=== PATIENT | male | born 1945 | race Caucasian/White ===

== ENCOUNTER → 2020-09-15 | Outpatient (CLI) | payer MEDICARE, BC ==
[~2020-09-15] VITALS: Ht 190.5 cm; Wt 134.3 kg
[~2020-09-15] MED LIST: ADDERALL10 MG PO; AGGRENOX 25 MG-1 CER PO; COUMADIN PO; DIOVAN 12.5 MG-1 TAB PO; DIOVAN320 MG PO; OXYCONTIN10 MG PO; SIMVASTATIN40 MG PO; TENEX1 MG PO; THERAGRAN1 TA1 PO; VITAMIN D31000 IU PO
[2020-09-15 08:30] VITALS: BP 137/82; PULSE 70
--- NOTE | 2020-09-15 08:47 | NUR ---
taken back to [facility].
[2020-09-15 09:45] VITALS: BP 140/84; PULSE 69
[2020-09-15 11:00] LABS: TOTAL PROTEIN 4.6 gm/dL (6.4-8.2)
[2020-09-15 12:44] LABS: PLEURAL FLUID APPEARANCE CLOUDY; PLEURAL FLUID COLOR RED
[2020-09-15 12:45] LABS: PLEURAL FLUID RBC 21000 /mm3 (0-0); PLEURAL FLUID WBC 1715 /mm3
== END ==
LOC: COL.RAD 08:15
PROVIDERS: Family Medicine
DX: J90 Pleural effusion, not elsewhere classified (principal)

== ENCOUNTER → 2020-09-21 | Outpatient (CLI) | payer MEDICARE, BC | LOC: COL.RAD 07:08 | DX: C34.91 Malignant neoplasm of unspecified part of right bronchus or lung (principal); C77.9 Secondary and unspecified malignant neoplasm of lymph node, unspecified | CPT/HCPCS: Q9967 ==

== ENCOUNTER → 2020-09-30 | Outpatient (CLI) | payer MEDICARE, BC ==
[2020-09-30 15:47] VITALS: BP 146/78; PULSE 78
== END ==
LOC: COL.RAD 14:08
DX: C34.91 Malignant neoplasm of unspecified part of right bronchus or lung (principal); J90 Pleural effusion, not elsewhere classified

== ENCOUNTER → 2020-10-14 | Outpatient (CLI) | payer MEDICARE, BC ==
[~2020-10-14] VITALS: Ht 190.5 cm; Wt 130.8 kg
[2020-10-14 09:09] VITALS: BP 138/85; PULSE 78
[2020-10-14 11:01] VITALS: BP 153/81; PULSE 76
== END ==
LOC: COL.RAD 08:57
DX: C34.91 Malignant neoplasm of unspecified part of right bronchus or lung (principal)

== ENCOUNTER → 2020-10-21 | Outpatient (CLI) | payer MEDICARE, BC | LOC: COL.VAS 11:59 | DX: C34.90 Malignant neoplasm of unspecified part of unspecified bronchus or lung (principal); I44.7 Left bundle-branch block, unspecified; I51.7 Cardiomegaly ==

== ENCOUNTER → 2020-10-29 | Outpatient (CLI) | payer MEDICARE, BC ==
[~2020-10-29] MED LIST changes: +ADDERALL5 MG PO; +ANDROGEL1% TOP; +ASPIRIN 81M81 MG/TA2 PO; +CITRACAL-D3 ER1 EACH PO; +COCONUT OIL118.28 ML PO; +COENZYME Q-10100 M1 PO; +COLLAGEN PLUS PO; +CRANBERRY 100 M1 SGL PO; +DHEA25 M3 PO; +DIOVAN 160MG160 MG PO; +ELIQUIS 2.5; +ELIQUIS PO; +FLAXSEED OIL1000 MG PO; +GINGER ROOT PO; +HCTZ 25MG TAB25 MG PO; +MAGNESIUM200 MG PO; +NATURAL FISH1000 MG PO; +NATURAL ODORLE400 MG PO; +NATURAL POTASS595 MG PO; +NORCO 325 MG-51 TAB PO; +NORVASC 5MG5 MG/TAB PO; +ONE-A-DAY ESSE1 EACH PO; +PACERONE100 MG PO; +PHARMASSURE ZIN50 MG PO; +QUALITY CHOIC0.52 GM PO; +REGLAN 5MG T5 MG/TAB PO; +TAGRISSO80 MG PO; +TURMERIC500 MG PO; +VITAMIN B COMPL1 T16 PO; +VITAMIN D3 PO; +VITAMIN E1000 U/CAP PO; +[UNRECOGNIZED DRUG - CODE] TOP; +[UNRECOGNIZED DRUG - OTHER] PO; +amiodarone PO
[2020-10-29 14:37] VITALS: BP 166/93; PULSE 69
[2020-10-29 16:15] VITALS: BP 150/96; PULSE 80
--- NOTE | 2020-10-29 16:25 | NUR ---
dr abdullahi here to visit with pt
== END ==
LOC: COL.RAD 14:08
DX: C34.91 Malignant neoplasm of unspecified part of right bronchus or lung (principal); J90 Pleural effusion, not elsewhere classified
CPT/HCPCS: 19804

== ENCOUNTER → 2020-11-11 | Outpatient (CLI) | payer MEDICARE, BC ==
[~2020-11-11] VITALS: Ht 190.5 cm; Wt 132.5 kg
[2020-11-11 11:40] VITALS: BP 135/79; PULSE 71
[2020-11-11 13:06] VITALS: BP 157/93; PULSE 76
== END ==
LOC: COL.RAD
DX: C34.91 Malignant neoplasm of unspecified part of right bronchus or lung (principal); J90 Pleural effusion, not elsewhere classified
CPT/HCPCS: 19804

== ENCOUNTER → 2020-11-26 | Outpatient (CLI) | payer MEDICARE, BC ==
[~2020-11-26] VITALS: Ht 190.5 cm; Wt 130.0 kg
[2020-11-26 13:33] VITALS: BP 153/89; PULSE 59
[2020-11-26 14:50] VITALS: BP 158/64; PULSE 60
== END ==
LOC: COL.RAD 13:14
DX: C34.91 Malignant neoplasm of unspecified part of right bronchus or lung (principal); J90 Pleural effusion, not elsewhere classified; I51.7 Cardiomegaly
CPT/HCPCS: 19804

== ENCOUNTER → 2020-12-09 | Outpatient (CLI) | payer MEDICARE, BC ==
[~2020-12-09] VITALS: Ht 190.5 cm; Wt 128.5 kg
[2020-12-09 09:07] VITALS: BP 157/89; PULSE 65
[2020-12-09 10:15] VITALS: BP 138/84; PULSE 65
== END ==
LOC: COL.RAD 08:55
DX: C34.91 Malignant neoplasm of unspecified part of right bronchus or lung (principal); J90 Pleural effusion, not elsewhere classified

== ENCOUNTER → 2020-12-23 | Outpatient (CLI) | payer MEDICARE, BC ==
[~2020-12-23] VITALS: Ht 190.5 cm; Wt 130.2 kg
[2020-12-23 09:50] VITALS: BP 157/87; PULSE 61
[2020-12-23 10:50] VITALS: BP 161/93; PULSE 65
== END ==
LOC: COL.RAD 08:54
DX: C34.91 Malignant neoplasm of unspecified part of right bronchus or lung (principal); J90 Pleural effusion, not elsewhere classified
CPT/HCPCS: 19804

== ENCOUNTER → 2021-01-06 | Outpatient (CLI) | payer MEDICARE, BC ==
[~2021-01-06] VITALS: Ht 190.5 cm; Wt 130.4 kg
[2021-01-06 09:45] VITALS: BP 164/89; PULSE 62
[2021-01-06 10:45] VITALS: BP 154/85; PULSE 61
== END ==
LOC: COL.RAD 09:00
DX: J90 Pleural effusion, not elsewhere classified (principal); C34.91 Malignant neoplasm of unspecified part of right bronchus or lung
CPT/HCPCS: 19804

== ENCOUNTER → 2021-01-20 | Outpatient (CLI) | payer MEDICARE, BC ==
[~2021-01-20] VITALS: Ht 190.5 cm; Wt 129.1 kg
[2021-01-20 09:02] VITALS: BP 172/99; PULSE 67
[2021-01-20 10:05] VITALS: BP 160/89; PULSE 68
== END ==
LOC: COL.RAD 08:45
DX: C34.91 Malignant neoplasm of unspecified part of right bronchus or lung (principal); J90 Pleural effusion, not elsewhere classified
CPT/HCPCS: 19804

== ENCOUNTER 2021-01-25 08:36 | Emergency (ER) | payer MEDICARE, BC ==
[~2021-01-25] VITALS: Ht 190.5 cm; Wt 125.0 kg
[~2021-01-25 08:36] MED LIST changes: -CITRACAL-D3 ER1 EACH PO; -COCONUT OIL118.28 ML PO; -COENZYME Q-10100 M1 PO; -COLLAGEN PLUS PO; -CRANBERRY 100 M1 SGL PO; -DHEA25 M3 PO; -ELIQUIS 2.5; -ELIQUIS PO; -FLAXSEED OIL1000 MG PO; -GINGER ROOT PO; -MAGNESIUM200 MG PO; -NATURAL FISH1000 MG PO; -NATURAL ODORLE400 MG PO; -NATURAL POTASS595 MG PO; -NORCO 325 MG-51 TAB PO; -NORVASC 5MG5 MG/TAB PO; -ONE-A-DAY ESSE1 EACH PO; -PACERONE100 MG PO; -PHARMASSURE ZIN50 MG PO; -QUALITY CHOIC0.52 GM PO; -REGLAN 5MG T5 MG/TAB PO; -TURMERIC500 MG PO; -VITAMIN B COMPL1 T16 PO; -VITAMIN D3 PO; -VITAMIN E1000 U/CAP PO; -[UNRECOGNIZED DRUG - CODE] TOP; -[UNRECOGNIZED DRUG - OTHER] PO; -amiodarone PO
[2021-01-25 10:34] LABS: BASO % 0.3 % (0.0-2.0); EOS # 0.1 (0.0-0.7); EOS % 1.2 % (0-4.0); GRAN # 8.1 (1.4-6.5); GRAN % 86.8 % (42.2-75.2); HEMATOCRIT 49.4 % (42.0-52.0); HEMOGLOBIN 16.1 g/dl (13.5-18.0); LYMPH # 0.5 (1.2-3.4); LYMPH % 5.2 % (20.0-51.0); MEAN CELL VOLUME 96 fl (80.0-100.0); MEAN CORPUSCULAR HEMOGLOBIN 31 pg (27.0-31.0); MEAN CORPUSCULAR HGB CONC 33 g/dl (33.0-37.0); MEAN PLATELET VOLUME 10.7 fl (7.4-10.4); MONO # 0.6 (0.1-0.6); MONO % 6.2 % (1.7-9.3); PLATELET COUNT 136 K/mm3 (130-400); RED BLOOD COUNT 5.16 M/mm3 (4.20-5.60); REDCELL DISTRIBUTION WIDTH-CV 14.8 % (11.5-14.5)
[2021-01-25 10:43] LABS: INR 1.2 (0.8-3.0); PROTHROMBIN TIME 13.2 SECONDS (9.7-12.8)
[2021-01-25 10:44] LABS: ALBUMIN 3.3 gm/dL (3.5-5.0); BILIRUBIN,TOTAL 1.7 mg/dL (0.0-1.0); CREATININE, serum 1.21 (0.66-1.25); POTASSIUM 4.4 mmol/L (3.4-5.0); TOTAL PROTEIN 6.3 gm/dL (6.4-8.2)
[2021-01-25 10:50] VITALS: BP 124/81; PULSE 93
[2021-02-03] MEDS ORDERED: amiodarone PO (09:19)
[2021-02-03] MEDS ORDERED: ELIQUIS PO (09:23)
[2021-02-03] MEDS ORDERED: ELIQUIS 2.5 (09:26)
[2021-02-03] MEDS ORDERED: PACERONE100 MG PO (09:28)
[2021-04-14] MEDS ORDERED: DIOVAN320 MG PO (08:36)
[2021-04-14] MEDS ORDERED: NORVASC 5MG5 MG/TAB PO (08:38)
[2021-04-28] MEDS ORDERED: PACERONE100 MG PO (09:10)
== END 2021-01-25 10:50 | disposition short-term general hospital (02) ==
LOC: COL.ER 08:36
PROVIDERS: Family Medicine
DX: I48.91 Unspecified atrial fibrillation (principal); R57.0 Cardiogenic shock; I10 Essential (primary) hypertension; Z85.118 Personal history of other malignant neoplasm of bronchus and lung; Z87.891 Personal history of nicotine dependence; Z79.899 Other long term (current) drug therapy
CPT/HCPCS: A4314; C1751; J0282; J0461; J1644; J2250; J2274; J7060; J7120

== ENCOUNTER → 2021-02-04 | Outpatient (CLI) | payer MEDICARE, BC ==
[~2021-02-04] VITALS: Ht 190.5 cm; Wt 127.9 kg
[~2021-02-04] MED LIST changes: +CITRACAL-D3 ER1 EACH PO; +COCONUT OIL118.28 ML PO; +COENZYME Q-10100 M1 PO; +COLLAGEN PLUS PO; +CRANBERRY 100 M1 SGL PO; +DHEA25 M3 PO; +ELIQUIS 2.5; +ELIQUIS PO; +FLAXSEED OIL1000 MG PO; +GINGER ROOT PO; +MAGNESIUM200 MG PO; +NATURAL FISH1000 MG PO; +NATURAL ODORLE400 MG PO; +NATURAL POTASS595 MG PO; +NORCO 325 MG-51 TAB PO; +NORVASC 5MG5 MG/TAB PO; +ONE-A-DAY ESSE1 EACH PO; +PACERONE100 MG PO; +PHARMASSURE ZIN50 MG PO; +QUALITY CHOIC0.52 GM PO; +REGLAN 5MG T5 MG/TAB PO; +TURMERIC500 MG PO; +VITAMIN B COMPL1 T16 PO; +VITAMIN D3 PO; +VITAMIN E1000 U/CAP PO; +[UNRECOGNIZED DRUG - CODE] TOP; +[UNRECOGNIZED DRUG - OTHER] PO; +amiodarone PO
[2021-02-04 08:46] VITALS: BP 152/90; PULSE 57
[2021-02-04 10:00] VITALS: BP 157/86; PULSE 59
== END ==
LOC: COL.RAD 08:15
DX: C34.91 Malignant neoplasm of unspecified part of right bronchus or lung (principal); J90 Pleural effusion, not elsewhere classified
CPT/HCPCS: 19804

== ENCOUNTER → 2021-02-18 | Outpatient (CLI) | payer MEDICARE, BC ==
[~2021-02-18] VITALS: Ht 190.5 cm; Wt 126.4 kg
[2021-02-18 12:22] VITALS: BP 174/88; PULSE 55
[2021-02-18 14:20] VITALS: BP 167/87; PULSE 53
== END ==
LOC: COL.RAD 02-10 09:00
DX: C34.91 Malignant neoplasm of unspecified part of right bronchus or lung (principal); J90 Pleural effusion, not elsewhere classified
CPT/HCPCS: 19804

== ENCOUNTER → 2021-03-03 | Outpatient (CLI) | payer MEDICARE, BC ==
[~2021-03-03] VITALS: Ht 190.5 cm; Wt 125.4 kg
[2021-03-03 09:17] VITALS: BP 156/82; PULSE 67
[2021-03-03 10:25] VITALS: BP 170/81; PULSE 68
== END ==
LOC: COL.RAD 08:57
DX: C34.91 Malignant neoplasm of unspecified part of right bronchus or lung (principal); J90 Pleural effusion, not elsewhere classified
CPT/HCPCS: 19804

== ENCOUNTER → 2021-03-17 | Outpatient (CLI) | payer MEDICARE, BC ==
[~2021-03-17] VITALS: Ht 190.5 cm; Wt 123.7 kg
[2021-03-17 09:15] VITALS: BP 148/82; PULSE 59
[2021-03-17 11:11] VITALS: BP 148/82; PULSE 63
== END ==
LOC: COL.RAD 08:33
DX: J90 Pleural effusion, not elsewhere classified (principal); C34.91 Malignant neoplasm of unspecified part of right bronchus or lung
CPT/HCPCS: 19804

== ENCOUNTER → 2021-03-31 | Outpatient (CLI) | payer MEDICARE, BC ==
[~2021-03-31] VITALS: Ht 190.5 cm; Wt 125.8 kg
[2021-03-31 07:28] VITALS: BP 141/77; PULSE 65; TEMP 98
[2021-03-31 10:35] VITALS: BP 155/88; PULSE 65
--- NOTE | 2021-03-31 10:35 | NUR ---
Patient to radiology holding area ambulatory. Denies pain or SOB at this time. VSS. S/P thoracentesis with 2650 ml of red/shavonne drainage per US tech. Patient discharged with personal belongings; refused w/c.
== END ==
LOC: COL.RAD 07:02
DX: C34.2 Malignant neoplasm of middle lobe, bronchus or lung (principal)
CPT/HCPCS: 19804

== ENCOUNTER → 2021-03-31 | Outpatient (CLI) | payer MEDICARE, BC | LOC: COL.CARD 07:14 | DX: C34.90 Malignant neoplasm of unspecified part of unspecified bronchus or lung (principal) ==

== ENCOUNTER → 2021-04-14 | Outpatient (CLI) | payer MEDICARE, BC ==
[~2021-04-14] VITALS: Ht 190.5 cm; Wt 124.8 kg
[2021-04-14 08:40] VITALS: BP 165/87; PULSE 66; TEMP 97.4
[2021-04-14 09:53] VITALS: BP 161/81; PULSE 64
== END ==
LOC: COL.RAD 08:15
DX: J90 Pleural effusion, not elsewhere classified (principal); C34.91 Malignant neoplasm of unspecified part of right bronchus or lung
CPT/HCPCS: 19804

== ENCOUNTER → 2021-04-28 | Outpatient (CLI) | payer MEDICARE, BC ==
[~2021-04-28] VITALS: Ht 190.5 cm; Wt 126.1 kg
[2021-04-28 09:14] VITALS: BP 153/83; PULSE 63; TEMP 97.7
[2021-04-28 10:05] VITALS: BP 148/80; PULSE 62
== END ==
LOC: COL.CARD 08:30 → COL.RAD 09:00
DX: J90 Pleural effusion, not elsewhere classified (principal); C34.91 Malignant neoplasm of unspecified part of right bronchus or lung
CPT/HCPCS: 19804

== ENCOUNTER 2021-04-30 15:42 | Inpatient (IN) | payer MEDICARE, BC ==
[~2021-04-30] VITALS: Ht 190.7 cm; Wt 124.5 kg
[~2021-04-30 15:42] MED LIST changes: -CITRACAL-D3 ER1 EACH PO; -COCONUT OIL118.28 ML PO; -COENZYME Q-10100 M1 PO; -COLLAGEN PLUS PO; -CRANBERRY 100 M1 SGL PO; -DHEA25 M3 PO; -FLAXSEED OIL1000 MG PO; -GINGER ROOT PO; -MAGNESIUM200 MG PO; -NATURAL FISH1000 MG PO; -NATURAL ODORLE400 MG PO; -NATURAL POTASS595 MG PO; -NORCO 325 MG-51 TAB PO; -ONE-A-DAY ESSE1 EACH PO; -PHARMASSURE ZIN50 MG PO; -QUALITY CHOIC0.52 GM PO; -REGLAN 5MG T5 MG/TAB PO; -TURMERIC500 MG PO; -VITAMIN B COMPL1 T16 PO; -VITAMIN D3 PO; -VITAMIN E1000 U/CAP PO; -[UNRECOGNIZED DRUG - CODE] TOP; -[UNRECOGNIZED DRUG - OTHER] PO
[2021-05-05] VITALS (11 sets, daily range): BP systolic 112–146; BP diastolic 55–78; PULSE 63–84; TEMP 97.9–98.5
[2021-05-05] MEDS ORDERED: REGLAN 5MG T5 MG/TAB PO (08:07)
[2021-05-05] MEDS ORDERED: QUALITY CHOIC0.52 GM PO (08:08)
[2021-05-05 08:39] LABS: BASO % 0.2 % (0.0-2.0); EOS # 0.2 (0.0-0.7); EOS % 4.5 % (0-4.0); GRAN # 3.9 (1.4-6.5); GRAN % 77.4 % (42.2-75.2); HEMATOCRIT 42.3 % (42.0-52.0); HEMOGLOBIN 13.5 g/dl (13.5-18.0); LYMPH # 0.4 (1.2-3.4); LYMPH % 8.1 % (20.0-51.0); MEAN CELL VOLUME 99 fl (80.0-100.0); MEAN CORPUSCULAR HEMOGLOBIN 32 pg (27.0-31.0); MEAN CORPUSCULAR HGB CONC 32 g/dl (33.0-37.0); MEAN PLATELET VOLUME 10.7 fl (7.4-10.4); MONO # 0.5 (0.1-0.6); MONO % 9.6 % (1.7-9.3); PLATELET COUNT 159 K/mm3 (130-400); RED BLOOD COUNT 4.28 M/mm3 (4.20-5.60); REDCELL DISTRIBUTION WIDTH-CV 14.6 % (11.5-14.5)
[2021-05-05 08:46] LABS: INR 1.2 (0.8-3.0); PROTHROMBIN TIME 13.2 SECONDS (9.7-12.8)
[2021-05-05 08:47] LABS: ALBUMIN 3.6 gm/dL (3.5-5.0); BILIRUBIN,TOTAL 0.9 mg/dL (0.0-1.0); CALCIUM 8.6 mg/dL (8.4-10.2); CREATININE, serum 0.97 (0.66-1.25); POTASSIUM 4.1 mmol/L (3.4-5.0); TOTAL PROTEIN 6.8 gm/dL (6.4-8.2)
--- NOTE | 2021-05-05 12:30 | NUR ---
Patient arrived to floor via bed around 1145. He is alert and oriented. Chest tube placed to suction as ordred. Drainage is pink. Patient stated pain is minimal at this time, denies nausea. at bedside. When going over patients home medications with him, he stated he takes several supplements. He does not have a list with him. He stated that Dr Reynoso has the list at his office. Will get list and update the home med rec. No other changes at this time. Call light within reach.
--- NOTE | 2021-05-05 14:08 | NUR ---
Pt is on OSIMERTINIB, a home med, that is an antineoplastic that will be present in urine and stool for 48-72 hours after each dose and this is a daily medication. Please wear PPE when administering or handling pt's urine or stool and follow chemotherapy precautions as posted.
[2021-05-05] MEDS ORDERED: ADDERALL5 MG PO (16:16)
[2021-05-05] MEDS ORDERED: [UNRECOGNIZED DRUG - CODE] TOP (16:17)
[2021-05-05] MEDS ORDERED: ASPIRIN 81M81 MG/TA2 PO ×2 (16:17)
[2021-05-05] MEDS ORDERED: CITRACAL-D3 ER1 EACH PO (16:22)
[2021-05-05] MEDS ORDERED: COENZYME Q-10100 M1 PO (16:23)
[2021-05-05] MEDS ORDERED: COCONUT OIL118.28 ML PO (16:24)
[2021-05-05] MEDS ORDERED: COLLAGEN PLUS PO (16:34)
[2021-05-05] MEDS ORDERED: CRANBERRY 100 M1 SGL PO (16:46)
[2021-05-05] MEDS ORDERED: NATURAL FISH1000 MG PO (16:48)
[2021-05-05] MEDS ORDERED: DHEA25 M3 PO (16:49)
[2021-05-05] MEDS ORDERED: FLAXSEED OIL1000 MG PO (16:50)
[2021-05-05] MEDS ORDERED: NATURAL ODORLE400 MG PO (16:50)
[2021-05-05] MEDS ORDERED: [UNRECOGNIZED DRUG - OTHER] PO (16:53)
[2021-05-05] MEDS ORDERED: GINGER ROOT PO (16:53)
[2021-05-05] MEDS ORDERED: MAGNESIUM200 MG PO (16:54)
[2021-05-05] MEDS ORDERED: ONE-A-DAY ESSE1 EACH PO (16:55)
[2021-05-05] MEDS ORDERED: NATURAL POTASS595 MG PO (16:56)
[2021-05-05] MEDS ORDERED: VITAMIN B COMPL1 T16 PO (17:00)
[2021-05-05] MEDS ORDERED: TURMERIC500 MG PO (17:01)
[2021-05-05] MEDS ORDERED: VITAMIN D3 PO (17:07)
[2021-05-05] MEDS ORDERED: VITAMIN E1000 U/CAP PO (17:08)
[2021-05-05] MEDS ORDERED: PHARMASSURE ZIN50 MG PO (17:09)
--- NOTE | 2021-05-05 18:30 | NUR ---
Finally got patients med rec updated with correct medications. He stated he takes different supplements of different days and doesn't take them all every day. Let Dr Neely know that he doesn't want them while in the hospital but that the list is update. No other changes at this time. He had about 250ml of red tinged drainage from chest tube. Call light within reach.
[2021-05-06] VITALS (7 sets, daily range): BP systolic 89–124; BP diastolic 41–76; PULSE 58–64; TEMP 97.4–98.3
--- NOTE | 2021-05-06 06:31 | NUR ---
Awake, alert, Ox4, chest tube to R chest wall intact with 100ml of SS drainage, tolerating well and denies shortness of breath, states "I feel so much better", patient teaching regarding chest tube- verbalized understanding. used CPAP during shift production associate, O2@1.5L per NC in use, call beaver w/i reach, pain managment with current regimen adequate per patient.
--- NOTE | 2021-05-06 11:00 | NUR ---
Patient alert and oriented, answers questions appropriately. See assessment. Chest tube in place to right chest wall, to 20mmhz suction. Foam dressing in place over CT, CDI. Vaseling gauze, foam take, clamps, 4x4 and sterile water at bedside. Lungs clear in LLL, IRMA, decreased in RUL, wheezes noted in RLL. IS and CDB reviewed with patient. Respers even and unlabored. O2 at 1.5l/nc. CT care reviewed with patient. No c/o at this time.
--- NOTE | 2021-05-06 12:43 | NUR ---
Patient down to endo with surgical staff at 1235.
--- NOTE | 2021-05-06 13:09 | NUR ---
composite layup worker met with patient to discuss discharge plan. Patient lives at home with his Mariela in [place]. Patient reports to being independent on all activities of daily living and uses no assistance with ambulation. PCP is Dr. Echavarria and uses [facility] pharmacy for perscriptions. No trouble affording medications. Patient reports he had a DPOA-HC established but needs to have it notarized. composite layup worker offered to have that done while he is here and he denied due to his not being present. Plan's to return home. *Discharge plan:Home*
--- NOTE | 2021-05-06 23:50 | NUR ---
PT IN BED, HAS CPAP ON. RT CHEST TUBE TO WATERSEAL. DRSG D/I. DENIES PAIN. TAKES SCHEDULED ES TYLENOL AT THIS TIME. SL TO RT FOREARM WITHOUT REDNESS OR SWELLING. HAS GOOD TIDALING IN DRAINAGE CONTAINER.
[2021-05-07 03:17] VITALS: BP 111/66; PULSE 58; TEMP 98.1
--- NOTE | 2021-05-07 06:00 | NUR ---
TAKES SCHEDULED AM MEDS WITHOUT PROBLEM. HAS 180CC SEROSANGUINOUS DRAINAGE IN CHEST TUBE CANNISTER. DENIES NEEDS AT THIS TIME.
[2021-05-07 07:49] VITALS: BP 109/56; PULSE 68; TEMP 97.7
--- NOTE | 2021-05-07 10:00 | NUR ---
Patient alert and oriented, answers questions appropriately. See assessment. Chest tube in place to right chest, dressing CDI. Chest tube to waterseal. RUQ/RLQ diminished. LLQ/LUQ CTA. Respers even and unlabored. No c/o at this time.
[2021-05-07 12:35] VITALS: BP 116/61; PULSE 74; TEMP 98
[2021-05-07] MEDS ORDERED: NORCO 325 MG-51 TAB PO (13:06)
--- NOTE | 2021-05-07 15:11 | NUR ---
Patient returns post op lap appy at 1505. Assessment unchanged except lap sites x3 to abdomen with edges well approximated, no redness or drainage noted. No c/o at this time.
[2021-05-07 16:15] VITALS: BP 115/57; PULSE 70; TEMP 97.9
[2021-05-07 20:44] VITALS: BP 117/56; PULSE 66; TEMP 97.7
[2021-05-07 23:29] VITALS: BP 111/58; PULSE 61; TEMP 97.7
[2021-05-08 03:20] VITALS: BP 125/66; PULSE 62; TEMP 98
--- NOTE | 2021-05-08 05:29 | NUR ---
Patient's chest tube dressing saturated and leaking, dressing change to chest tube site by charge nurse and this nurse, patient tolerated well.
[2021-05-08 08:00] VITALS: BP 104/54; PULSE 62; TEMP 97.6
[2021-05-08 11:46] VITALS: BP 121/55; PULSE 67; TEMP 98.3
--- NOTE | 2021-05-08 14:15 | NUR ---
AT BEDSIDE. CHEST TUBE DC'D. SEE PHYSICIAN PROGRESS NOTES
[2021-05-08 16:00] VITALS: BP 121/50; PULSE 60; TEMP 98
[2021-05-08 19:16] VITALS: BP 118/54; PULSE 68; TEMP 97.7
--- NOTE | 2021-05-08 21:00 | NUR ---
PT IN BED, WATCHING TV. TAKES HS MEDS. DENIES PAIN. DRSG TO RT CHEST INTACT. HAS INT TO RT HAND. INDEPENDENT IN ROOM.
[2021-05-08 23:52] VITALS: BP 116/63; PULSE 64; TEMP 98.4
--- NOTE | 2021-05-09 | NUR ---
IN BED WITH CPAP ON. DENIES NEEDS.
[2021-05-09 03:35] VITALS: BP 119/49; PULSE 63; TEMP 97.9
[2021-05-09 06:42] LABS: BASO % 0.2 % (0.0-2.0); EOS # 0.2 (0.0-0.7); EOS % 4.9 % (0-4.0); GRAN # 3.7 (1.4-6.5); GRAN % 76.2 % (42.2-75.2); HEMATOCRIT 38.9 % (42.0-52.0); HEMOGLOBIN 12.5 g/dl (13.5-18.0); LYMPH # 0.3 (1.2-3.4); LYMPH % 6.3 % (20.0-51.0); MEAN CELL VOLUME 97 fl (80.0-100.0); MEAN CORPUSCULAR HEMOGLOBIN 31 pg (27.0-31.0); MEAN CORPUSCULAR HGB CONC 32 g/dl (33.0-37.0); MEAN PLATELET VOLUME 10.7 fl (7.4-10.4); MONO # 0.6 (0.1-0.6); MONO % 11.8 % (1.7-9.3); PLATELET COUNT 150 K/mm3 (130-400); REDCELL DISTRIBUTION WIDTH-CV 14.5 % (11.5-14.5)
[2021-05-09 06:56] LABS: CALCIUM 8.3 mg/dL (8.4-10.2); CREATININE, serum 0.95 (0.66-1.25); POTASSIUM 4.3 mmol/L (3.4-5.0)
[2021-05-09 06:57] VITALS: BP 135/64; PULSE 66; TEMP 97.8
--- NOTE | 2021-05-09 08:00 | NUR ---
PATIENT IS A&O. VSS. DENIES PAIN OR SOA. RIGHT FLANK DRESSING IS CD&I WITH OCCLUSIVE TAPE. CXR OBTAINED THIS AM. HEAD TO TOE ASSESSMENT COMPLETE. AM MEDS GIVEN. NO OTHER NEEDS. PATIENT INDEPENDENT IN ROOM AND HOPING TO DISCHARGE HOME LATER TODAY.
--- NOTE | 2021-05-09 11:26 | NUR ---
PATIENT DISCHARGING HOME VIA AMBULATORY TO PERSONAL VEHICLE WITH . GAVE DISCHARGE INSTRUCTIONS, E-SCRIPT SENT, AND DISCUSSED F/U APT. ANSWERED QUESTIONS/CONCERNS. SENT HOME DSG SUPPLIES. DC'D RIGHT HAND IV SITE, COVERED SITE WITH GAUZE & COBAN. PATIENT IS DRESSED, PACKED AND DISCHARGED.
== END 2021-05-09 11:26 | disposition home or self-care (01) | DRG 167 ==
LOC: INPTSU 05-05 07:30 → SURG 05-05 09:30 → SDCO 05-05 09:30 → EDSTATUS 05-05 10:30 → SURG 05-05 11:36
PROVIDERS: Surgery; ADMIT Surgery
PROC: 3E0L4GC Introduction of Other Therapeutic Substance into Pleural Cavity, Percutaneous Endoscopic Approach (ICD-10-PCS; 2021-05-05)
PROC: 0W994ZZ Drainage of Right Pleural Cavity, Percutaneous Endoscopic Approach (ICD-10-PCS; principal; 2021-05-05 09:30)
DX: C34.91 Malignant neoplasm of unspecified part of right bronchus or lung (principal); J91.0 Malignant pleural effusion; M19.90 Unspecified osteoarthritis, unspecified site; E78.5 Hyperlipidemia, unspecified; I48.91 Unspecified atrial fibrillation; Z96.653 Presence of artificial knee joint, bilateral; Z86.711 Personal history of pulmonary embolism; Z79.01 Long term (current) use of anticoagulants
CPT/HCPCS: A7041; A7048; A9284; C1729; J0690; J1100; J1650; J2250; J2370; J2405; J2704; J3010; J7120

== ENCOUNTER 2021-10-06 13:58 | Outpatient (CLI) | payer MEDICARE, BC ==
[~2021-10-06] VITALS: Ht 190.5 cm; Wt 122.0 kg
[~2021-10-06 13:58] MED LIST changes: +CITRACAL-D3 ER1 EACH PO; +COCONUT OIL118.28 ML PO; +COENZYME Q-10100 M1 PO; +COLLAGEN PLUS PO; +CRANBERRY 100 M1 SGL PO; +DHEA25 M3 PO; +FLAXSEED OIL1000 MG PO; +GINGER ROOT PO; +MAGNESIUM200 MG PO; +NATURAL FISH1000 MG PO; +NATURAL ODORLE400 MG PO; +NATURAL POTASS595 MG PO; +NORCO 325 MG-51 TAB PO; +ONE-A-DAY ESSE1 EACH PO; +PHARMASSURE ZIN50 MG PO; +QUALITY CHOIC0.52 GM PO; +REGLAN 5MG T5 MG/TAB PO; +TURMERIC500 MG PO; +VITAMIN B COMPL1 T16 PO; +VITAMIN D3 PO; +VITAMIN E1000 U/CAP PO; +[UNRECOGNIZED DRUG - CODE] TOP; +[UNRECOGNIZED DRUG - OTHER] PO
[2021-10-06 15:08] VITALS: BP 165/89; PULSE 63; TEMP 97.8
== END 2021-10-06 15:00 | disposition home or self-care (01) ==
LOC: EUO 13:58
DX: R35.0 Frequency of micturition (principal); R39.15 Urgency of urination

== ENCOUNTER 2022-06-20 20:32 | Inpatient (IN) | payer MEDICARE, BC ==
[~2022-06-20] VITALS: Ht 190.5 cm; Wt 110.2 kg
[2022-06-20 20:59] LABS: HEMOGLOBIN 11.9 g/dl (13.5-18.0); MEAN CELL VOLUME 95 fl (80.0-100.0); MEAN CORPUSCULAR HEMOGLOBIN 31 pg (27-31); MEAN CORPUSCULAR HGB CONC 33 g/dl (33.0-37.0); MEAN PLATELET VOLUME 10.4 fl (7.4-10.4); PLATELET COUNT 187 K/mm3 (130-400); RED BLOOD COUNT 3.79 M/mm3 (4.20-5.60); REDCELL DISTRIBUTION WIDTH-CV 13.3 % (11.5-14.5)
[2022-06-20 21:11] LABS: HEMATOCRIT 35.8 % (42.0-52.0)
[2022-06-20 21:14] LABS: ALANINE AMINOTRANSFERASE 9 U/L (0-55); ALBUMIN 2.4 gm/dL (3.4-4.8); ALKALINE PHOSPHATASE 61 U/L (40-150); ANION GAP 10 mmol/L (7-16); AST,SGOT 24 U/L (5-34); BILIRUBIN,TOTAL 1.1 mg/dL (0.2-1.2); BLOOD UREA NITROGEN 16 mg/dL (8-26); CALCIUM 8.2 mg/dL (8.4-10.2); CARBON DIOXIDE 25 mmol/L (23-31); CHLORIDE 103 mmol/L (98-107); CREATININE, serum 0.87 mg/dL (0.72-1.25); GLUCOSE 89 mg/dL (70-99); LIPASE < 4 U/L (8-78); POTASSIUM 3.6 mmol/L (3.5-4.5); SODIUM 138 mmol/L (136-145); TOTAL PROTEIN 5.7 gm/dL (6.2-8.1)
[2022-06-20 21:21] LABS: BILIRUBIN,DIRECT 0.4 mg/dL (0.0-0.5)
[2022-06-20 22:12] LABS: BAND 16 % (0-10); EOSINOPHIL 4 % (0-4); LYMPHOCYTE 4 % (20.0-51.0); METAMYELOCYTE 20 % (0-0); NEUTROPHILS 56 % (42.0-75.2)
[2022-06-20 22:17] LABS: HYPOCHROMIA 1+
[2022-06-20 22:18] LABS: ANISOCYTOSIS 1+; OVALOCYTES 1+; PLATELET ESTIMATE NORMAL (NORMAL)
[2022-06-21] MEDS ORDERED: PRIL40 PO (00:06)
[2022-06-21] MEDS ORDERED: ADDERALL10 MG PO ×2 (00:07→06:51)
[2022-06-21 00:45] VITALS: BP 112/62; PULSE 68; TEMP 98.1
[2022-06-21] MEDS ORDERED: FLOMAX 0.40.4 MG/CAP PO (01:08)
[2022-06-21] MEDS ORDERED: NAMENDA5 MG PO (01:10)
[2022-06-21] MEDS ORDERED: FOLIC ACID 11 MG/TA1 PO (01:12)
[2022-06-21] MEDS ORDERED: DECADRON 4MG TAB4 MG PO (01:24)
[2022-06-21] MEDS ORDERED: TESTOSTERONE (01:26)
[2022-06-21 03:56] VITALS: BP 118/61; PULSE 64; TEMP 98.7
--- NOTE | 2022-06-21 05:15 | NUR ---
PT ARRIVED TO THE MEDICAL FLOOR AT 0040HRS TO ROOM 358. PT A&O X 4; VSS; O2 RA. PT DENIED GENERAL PAIN, CHEST PAIN, PALPITATIONS, N,V, SOB OR DIZZINESS. PT DID HAVE A COUPLE OF EPISODES OF DIARRHEA THIS SHIFT. ADMISSIONS ASSESSMENT AND MED REC COMPLETE. PT ORIENTED TO ROOM AND HOSPITAL POLICY. POC DISCUSSED WITH PT. PT VERBALIZED UNDERSTANDING. ALL QUESTIONS AND CONCERNS ADDRESSED. PT EXPRESSED NO ADDITIONAL NEEDS AT THIS TIME. CALL LIGHT WITHIN REACH. HOSPITALIST CALLED WITH CRITICAL LAB: WBC 0.9.
[2022-06-21 05:36] LABS: MEAN CELL VOLUME 94 fl (80.0-100.0); MEAN CORPUSCULAR HEMOGLOBIN 31 pg (27-31); MEAN CORPUSCULAR HGB CONC 33 g/dl (33.0-37.0); MEAN PLATELET VOLUME 10.6 fl (7.4-10.4); PLATELET COUNT 150 K/mm3 (130-400); RED BLOOD COUNT 3.57 M/mm3 (4.20-5.60); REDCELL DISTRIBUTION WIDTH-CV 13.2 % (11.5-14.5)
[2022-06-21 05:44] LABS: CREATININE, serum 0.86 mg/dL (0.72-1.25); POTASSIUM 3.4 mmol/L (3.5-4.5)
[2022-06-21 05:50] LABS: HEMATOCRIT 33.7 % (42.0-52.0)
[2022-06-21] MEDS ORDERED: ELIQUIS 5MG PO (06:47)
[2022-06-21 06:52] LABS: BAND 10 % (0-10); EOSINOPHIL 25 % (0-4); HYPOCHROMIA 1+; LYMPHOCYTE 16 % (20.0-51.0); METAMYELOCYTE 3 % (0-0); MYELOCYTE 1 % (0-0); NEUTROPHILS 40 % (42.0-75.2); PLATELET ESTIMATE NORMAL (NORMAL)
[2022-06-21 06:54] LABS: OVALOCYTES 1+
[2022-06-21 08:00] VITALS: BP 124/71; PULSE 70; TEMP 97.6
--- NOTE | 2022-06-21 08:46 | NUR ---
Notified by primary RN that patient is prescribed chemotherapy: paclitaxel. Staff to follow chemo precautions when handling patient urine or feces for 10 days after last dose. Per patient, last dose 06/[address] until 06/27. Sign placed outside patient door and primary RN aware.
--- NOTE | 2022-06-21 10:21 | NUR ---
Initial visit; Chavo and his thanked Bench Assembler for looking in on him and offering to keep Chavo in her prayers. Bench Assembler will follow up while patient is hospitalized.
[2022-06-21 11:47] VITALS: BP 116/59; PULSE 74; TEMP 97.6
[2022-06-21 15:49] VITALS: BP 132/66; PULSE 80; TEMP 98.3
[2022-06-21 19:21] VITALS: BP 135/72; PULSE 84; TEMP 98.2
--- NOTE | 2022-06-21 20:30 | NUR ---
Initial shift assessment done- Alert to person/place somewhat forgetful at times, bed alarm on, states no pain/SOB, Up to bathroom, having liquid dark stool, on Contact precautions/c-diff,,Tele on, IV fluids of NS at 125cc/hr
[2022-06-21 22:44] LABS: MUCOUS Present (NOT PRESENT); SQUAMOUS EPITHELIAL None Seen /hpf (0-10); URINE APPEARANCE Clear (CLEAR/HAZY); URINE BACTERIA Rare /hpf (NONE SEEN); URINE BLOOD Negative (NEGATIVE); URINE COLOR Amber (YELLOW); URINE GLUCOSE Negative (NEGATIVE); URINE KETONE 1+ (NEGATIVE); URINE NITRATE Negative (NEGATIVE); URINE PROTEIN(semi-quant) 1+ (NEGATIVE); URINE RBC 0-2 /hpf (0-2); URINE UROBILINOGEN 0.2 E.U/dL (0.2-1.0)
[2022-06-21 22:45] LABS: COLLECTION METHOD CLEAN CATCH
[2022-06-21 23:27] LABS: CLOSTRIDIUM DIFF A/B POS; CLOSTRIDIUM DIFF A/B INTERP Toxigenic C.diff POS
[2022-06-22] VITALS (9 sets, daily range): BP systolic 104–139; BP diastolic 56–73; PULSE 67–83; TEMP 98.2–102
--- NOTE | 2022-06-22 05:58 | NUR ---
Has been up to bathroom numerous times for liquid black stool, did wear his CPAP all night, specimens sent during the night of stool and urine - on contact for c-diff.
[2022-06-22 07:57] LABS: HEMOGLOBIN 10.5 g/dl (13.5-18.0); MEAN CELL VOLUME 96 fl (80.0-100.0); MEAN CORPUSCULAR HEMOGLOBIN 31 pg (27-31); MEAN CORPUSCULAR HGB CONC 33 g/dl (33.0-37.0); MEAN PLATELET VOLUME 11.6 fl (7.4-10.4); PLATELET COUNT 135 K/mm3 (130-400); RED BLOOD COUNT 3.35 M/mm3 (4.20-5.60); REDCELL DISTRIBUTION WIDTH-CV 13.3 % (11.5-14.5)
--- NOTE | 2022-06-22 08:00 | NUR ---
Pt covered beneath blankets in bed. Morning medications administered per eMAR. Shift assessment completed. Telemetry on. IV in L forearm intact; no edema or redness. No further requests at this time. Contact precautions remain in place. Call light within reach.
[2022-06-22] MEDS ORDERED: TAXOTERE20 MG/ML IV (08:31)
[2022-06-22] MEDS ORDERED: CYRAMZA10 MG/ML IV (08:33)
[2022-06-22 08:55] LABS: BAND 2 % (0-10); EOSINOPHIL 28 % (0-4); LYMPHOCYTE 30 % (20.0-51.0); NEUTROPHILS 28 % (42.0-75.2)
[2022-06-22 09:03] LABS: HYPOCHROMIA 1+; PLATELET ESTIMATE NORMAL (NORMAL); ROULEAUX 1+
--- NOTE | 2022-06-22 14:28 | NUR ---
Community Service Officer Coordinator met with patient to discuss discharge planning. Patient lives in [place] with his , Mariela (ph#[phone]) who is at bedside. Patient sees Dr. Echavarria for primary care and obtains medications from [facility] in [place] with no difficulties. Patient uses a CPAP and no other DME. Patient reports he is normally independent with ADLS. Patient also advised his , Mariela is designated as DPOA-HC. PT/OT ordered. Patient plans to return home when ready for discharge. Discharge Plan: Home
--- NOTE | 2022-06-22 19:30 | NUR ---
Initial shift assessment done- Face flushed, temp 102, will give Tylenol at this time, Incontinent of liquid black stool- cleaned up and patient also got up with assist to bathroom for more liquid stool- bed linen changed, pt back to bed. Tele on, IV fluids of NS at 125cc/hr- pt is getting IV Zosyn and po vancomycin as ordered. Will let Ana Paula know of Temp 102, {did get BC when temp was 100.7 earlier}
--- NOTE | 2022-06-22 20:35 | NUR ---
Did inform Ana Paula LEIGH of temp of 102- tylenol given--now down to 99.9
--- NOTE | 2022-06-23 01:29 | NUR ---
Up to bathroom with assist for liquid black stool, temp down to 98.2, pt states he is feeling so much better, stronger, and mind clearer, back to bed.
[2022-06-23 03:18] VITALS: BP 113/68; PULSE 80; TEMP 100
--- NOTE | 2022-06-23 06:08 | NUR ---
Did sleep fair last night- Up to bathroom about 6 times during the night for liquid stool- temp 100.0 now-Tylenol given.
[2022-06-23 07:33] LABS: HEMOGLOBIN 10.1 g/dl (13.5-18.0); MEAN CELL VOLUME 92 fl (80.0-100.0); MEAN CORPUSCULAR HEMOGLOBIN 31 pg (27-31); MEAN CORPUSCULAR HGB CONC 34 g/dl (33.0-37.0); MEAN PLATELET VOLUME 11.5 fl (7.4-10.4); PLATELET COUNT 138 K/mm3 (130-400); RED BLOOD COUNT 3.22 M/mm3 (4.20-5.60); REDCELL DISTRIBUTION WIDTH-CV 13.2 % (11.5-14.5)
[2022-06-23 07:43] LABS: CALCIUM 7.5 mg/dL (8.4-10.2); CREATININE, serum 0.95 mg/dL (0.72-1.25); MAGNESIUM 1.8 mg/dL (1.6-2.6); POTASSIUM 3.5 mmol/L (3.5-4.5)
[2022-06-23 07:44] LABS: HEMATOCRIT 29.6 % (42.0-52.0)
[2022-06-23 08:02] VITALS: BP 108/58; PULSE 72; TEMP 98.7
[2022-06-23 08:48] LABS: BAND 27 % (0-10); BASOPHIL 1 % (0-2); EOSINOPHIL 8 % (0-4); LYMPHOCYTE 18 % (20.0-51.0); METAMYELOCYTE 1 % (0-0); MYELOCYTE 1 % (0-0); NEUTROPHILS 25 % (42.0-75.2); PLATELET ESTIMATE NORMAL (NORMAL)
--- NOTE | 2022-06-23 09:21 | NUR ---
Pt assessment complete. Pt is returning to bed from restroom, he is A/O x4. His breathing is even and unlabored on RA. Pt denies SOB. Reports mild abdomen pain, denies stomach cramping. Still is having stools. Educated patient and his on cdiff and precautions. Pt denies any nausea, but reports little appetite. IVF infusing per protocol. Fall precautions in place. No needs at this time. Call light within reach.
[2022-06-23 11:35] VITALS: BP 102/56; PULSE 76; TEMP 99.1
[2022-06-23 12:27] LABS: PATHOLOGY DIFF REVIEW OK +
[2022-06-23 13:50] VITALS: TEMP 101.5
[2022-06-23 15:30] VITALS: BP 102/61; PULSE 80; TEMP 98.1
--- NOTE | 2022-06-23 19:17 | NUR ---
Pt continued to have diarrhea, states he is feeling better. Reports mild abdominal pain. Denies any SOB. Occasionally has some confusion, more noticeable with fevers. Fall precautions in place. Call light within reach.
[2022-06-23 19:38] VITALS: BP 114/63; PULSE 78; TEMP 100.3
[2022-06-24] VITALS (7 sets, daily range): BP systolic 105–124; BP diastolic 60–68; PULSE 71–78; TEMP 97.5–98.2
--- NOTE | 2022-06-24 05:15 | NUR ---
ASSESSMENT COMPLETE FOR CARD LACER JACQUARD. PT RESTING IN BED. PT DENIED GENERAL PAIN, CHEST PAIN, PALPITATIONS, SOB, N,V, OR DIZZINESS. PT STATED HE FELT STRONGER THIS EVENING THAN BEFORE. PT REPORTED HAVING JUST A SMALL AMOUNT OF DIARRHEA THIS SHIFT. PT EXPRESSED NO ADDITIONAL NEEDS AT THIS TIME. FALL PRECAUTIONS IN PLACE. CALL LIGHT WITHIN REACH.
[2022-06-24 06:40] LABS: HEMOGLOBIN 10.1 g/dl (13.5-18.0); MEAN CELL VOLUME 95 fl (80.0-100.0); MEAN CORPUSCULAR HEMOGLOBIN 31 pg (27-31); MEAN CORPUSCULAR HGB CONC 33 g/dl (33.0-37.0); MEAN PLATELET VOLUME 11.7 fl (7.4-10.4); PLATELET COUNT 149 K/mm3 (130-400); RED BLOOD COUNT 3.24 M/mm3 (4.20-5.60); REDCELL DISTRIBUTION WIDTH-CV 13.3 % (11.5-14.5)
[2022-06-24 06:46] LABS: HEMATOCRIT 30.8 % (42.0-52.0)
[2022-06-24 07:40] LABS: BAND 30 % (0-10); BASOPHIL 2 % (0-2); EOSINOPHIL 5 % (0-4); LYMPHOCYTE 5 % (20.0-51.0); NEUTROPHILS 49 % (42.0-75.2); PLATELET ESTIMATE NORMAL (NORMAL)
[2022-06-24 07:41] LABS: HYPOCHROMIA 1+
--- NOTE | 2022-06-24 08:00 | NUR ---
Patient setting off the bed alarm to go to the bathroom. A&Ox4. VSS. IV CDI, fluids infusing. BM on the floor leading into the bathroom. Patient steady on feet. Denies pain and discomfort. Contact precautions in place. Call light within reach.
--- NOTE | 2022-06-24 17:53 | NUR ---
Patient uneventful day, had a couple incontinent BM's. Steady on feet. A&Ox4. VSS. IV CDI. Denies pain and discomfort. Contact precautions in place. No further needs expressed. Call light within reach
[2022-06-25 04:14] VITALS: BP 96/67; PULSE 63; TEMP 97.5
--- NOTE | 2022-06-25 05:30 | NUR ---
ASSESSMENT COMPLETE FOR WINCH DERRICK OPERATOR. PT RESTING IN BED SLEEPING. PT COMPLAINED OF SOME DIARRHEA THIS SHIFT. PT DENIED PAIN, PALPITATIONS, SOB, N,V, OR DIZZINESS. PT HAD AN OTHERWISE UNEVENTFUL NIGHT. CONTACT PRECAUTIONS IN PLACE. CALL LIGHT WITHIN REACH.
[2022-06-25 07:29] VITALS: BP 127/68; PULSE 63; TEMP 97.9
[2022-06-25 07:30] LABS: HEMOGLOBIN 10.6 g/dl (13.5-18.0); MEAN CELL VOLUME 95 fl (80.0-100.0); MEAN CORPUSCULAR HEMOGLOBIN 31 pg (27-31); MEAN CORPUSCULAR HGB CONC 33 g/dl (33.0-37.0); MEAN PLATELET VOLUME 11.4 fl (7.4-10.4); PLATELET COUNT 162 K/mm3 (130-400); RED BLOOD COUNT 3.44 M/mm3 (4.20-5.60); REDCELL DISTRIBUTION WIDTH-CV 13.6 % (11.5-14.5)
[2022-06-25 07:37] LABS: HEMATOCRIT 32.6 % (42.0-52.0)
[2022-06-25 07:52] LABS: CALCIUM 7.3 mg/dL (8.4-10.2); CREATININE, serum 0.85 mg/dL (0.72-1.25); POTASSIUM 3.4 mmol/L (3.5-4.5)
[2022-06-25 08:12] LABS: BAND 10 % (0-10); BASOPHIL 1 % (0-2); EOSINOPHIL 3 % (0-4); LYMPHOCYTE 2 % (20.0-51.0); NEUTROPHILS 79 % (42.0-75.2)
[2022-06-25 08:13] LABS: HYPOCHROMIA 1+; PLATELET ESTIMATE NORMAL (NORMAL)
[2022-06-25 11:02] VITALS: BP 107/49; PULSE 62; TEMP 97.7
--- NOTE | 2022-06-25 12:34 | NUR ---
PATIENT RESTING IN BED, BED ALARM ON, CALL LIGHT WITHIN REACH. PATIENT STATED HE HAS HAD NO BM SINCE HIS LAST ONE DURING THE NIGHT. WILL CONT TO MONITOR.
--- NOTE | 2022-06-25 13:52 | NUR ---
Funeral Car Driver rounds: Funeral Car Driver visit offered. Patient declined because his Technical Adjuster has visited recently and he did not feel very well at this time.
[2022-06-25 15:09] VITALS: BP 133/75; PULSE 58; TEMP 97.7
--- NOTE | 2022-06-25 17:23 | NUR ---
PATIEMT HAD X3 LOOSE STOOL FOR ENTIRE DAY SHIFT. NONE THAT WERE "EXPLOSIVE" PER PATINETS DESCRIPTION, THEY WERE "MILD."
[2022-06-25 21:49] VITALS: BP 120/66; PULSE 70; TEMP 97.7
[2022-06-26 00:01] VITALS: BP 133/64; PULSE 63; TEMP 97.6
[2022-06-26 04:24] VITALS: BP 116/72; PULSE 66; TEMP 98.2
[2022-06-26 07:07] VITALS: BP 116/65; PULSE 60; TEMP 98.1
[2022-06-26 09:10] LABS: HEMOGLOBIN 10.6 g/dl (13.5-18.0); MEAN CELL VOLUME 92 fl (80.0-100.0); MEAN CORPUSCULAR HEMOGLOBIN 31 pg (27-31); MEAN CORPUSCULAR HGB CONC 34 g/dl (33.0-37.0); MEAN PLATELET VOLUME 11.1 fl (7.4-10.4); PLATELET COUNT 166 K/mm3 (130-400); RED BLOOD COUNT 3.42 M/mm3 (4.20-5.60); REDCELL DISTRIBUTION WIDTH-CV 13.7 % (11.5-14.5)
[2022-06-26 09:11] LABS: HEMATOCRIT 31.5 % (42.0-52.0)
[2022-06-26 11:00] LABS: EOSINOPHIL 1 % (0-4); LYMPHOCYTE 6 % (20.0-51.0); METAMYELOCYTE 2 % (0-0); NEUTROPHILS 85 % (42.0-75.2)
[2022-06-26 11:02] LABS: PLATELET ESTIMATE NORMAL (NORMAL)
[2022-06-26 11:14] VITALS: BP 117/71; PULSE 72; TEMP 97.8
--- NOTE | 2022-06-26 11:32 | NUR ---
PATIENT HAS HAD 4 LOOSE BM TODAY.
--- NOTE | 2022-06-26 13:22 | NUR ---
Potato Chip Maker rounds: Potato Chip Maker and meal seismic observer arrived to Patient's room at the same time. Potato Chip Maker offered to return later after Patient had eaten breakfast. Patient declined house principal visit.
[2022-06-26 15:47] VITALS: BP 124/70; PULSE 91; TEMP 97.5
[2022-06-26 19:45] VITALS: BP 144/71; PULSE 66; TEMP 98.2
[2022-06-27 00:52] VITALS: BP 138/72; PULSE 66; TEMP 97.5
[2022-06-27 04:55] VITALS: BP 118/69; PULSE 62; TEMP 97.5
[2022-06-27 06:51] LABS: MEAN CELL VOLUME 95 fl (80.0-100.0); MEAN CORPUSCULAR HGB CONC 32 g/dl (33.0-37.0); MEAN PLATELET VOLUME 11.4 fl (7.4-10.4); PLATELET COUNT 164 K/mm3 (130-400); RED BLOOD COUNT 3.18 M/mm3 (4.20-5.60); REDCELL DISTRIBUTION WIDTH-CV 13.8 % (11.5-14.5)
[2022-06-27 06:58] LABS: HEMATOCRIT 30.2 % (42.0-52.0); HEMOGLOBIN 9.7 g/dl (13.5-18.0); MEAN CORPUSCULAR HEMOGLOBIN 31 pg (27-31)
[2022-06-27 07:35] VITALS: BP 121/70; PULSE 60; TEMP 97.9
[2022-06-27 08:12] LABS: PATHOLOGY DIFF REVIEW OK +
[2022-06-27 08:38] LABS: BAND 1 % (0-10); EOSINOPHIL 7 % (0-4); LYMPHOCYTE 14 % (20.0-51.0)
[2022-06-27 08:39] LABS: HYPOCHROMIA 1+; NEUTROPHILS 75 % (42.0-75.2); PLATELET ESTIMATE NORMAL (NORMAL)
[2022-06-27] MEDS ORDERED: VANCOCIN H125 MG/CAP PO (12:06)
[2022-06-27] MEDS ORDERED: PROBIOTIC ACID1 EAC3 PO (12:07)
[2022-06-27] MEDS ORDERED: LIPITOR20 MG PO (12:14)
--- NOTE | 2022-06-27 12:53 | NUR ---
TELEMTRY AND IV DISCONTINUED.
--- NOTE | 2022-06-27 13:45 | NUR ---
PATIENT GIVEN DISCHARGE EDUCAITON AND INSTRUCTIONS. ALL QUESTIONS ANSWERED. PATIENT TAKEN TO PATIENT ENTRANCE VIA WHEELCHAIR BY THIS RN. PATIENT LEFT WITH HIS , IN STABLE CONDITION.
== END 2022-06-27 13:00 | disposition home or self-care (01) | DRG 872 ==
LOC: COL.ER 20:32 → MEDICAL 23:09
PROVIDERS: Emergency Medicine; Internal Medicine; Internal Medicine Infectious Disease; Nurse Practitioner Family; Physician Assistant; ADMIT Student in an Organized Health Care Education/Training Program
DX: A41.9 Sepsis, unspecified organism (principal); A04.72 Enterocolitis due to Clostridium difficile, not specified as recurrent; C34.90 Malignant neoplasm of unspecified part of unspecified bronchus or lung; K51.00 Ulcerative (chronic) pancolitis without complications; C79.31 Secondary malignant neoplasm of brain; C79.51 Secondary malignant neoplasm of bone; J91.0 Malignant pleural effusion; D84.9 Immunodeficiency, unspecified; F41.9 Anxiety disorder, unspecified; I48.91 Unspecified atrial fibrillation; I44.7 Left bundle-branch block, unspecified; E87.6 Hypokalemia; G47.30 Sleep apnea, unspecified; F10.90 Alcohol use, unspecified, uncomplicated; D70.9 Neutropenia, unspecified; Z86.711 Personal history of pulmonary embolism; Z79.01 Long term (current) use of anticoagulants; Z86.73 Personal history of transient ischemic attack (TIA), and cerebral infarction without residual deficits; Z87.891 Personal history of nicotine dependence; Z23 Encounter for immunization
CPT/HCPCS: C9113; J0692; J1170; J1447; J2270; J2543; J3480; J7030; J7120; Q9967